=== PATIENT | female | born 1965 | race Caucasian/White ===

== ENCOUNTER 2025-11-05 19:42 | Emergency (ER) | payer SELFPAY | END 2025-11-05 21:15 | disposition home or self-care (01) | LOC: NAV ERS 19:42 | DX: J20.9 Acute bronchitis, unspecified (principal); J06.9 Acute upper respiratory infection, unspecified; F17.210 Nicotine dependence, cigarettes, uncomplicated | CPT/HCPCS: 71046; 94640 ==